=== PATIENT | female | born 1985 | race Caucasian/White ===

== ENCOUNTER 2018-05-09 14:49 | Outpatient (CLI) | payer BC, OTHER ==
[2018-05-09 15:15] LABS: Basophils % (A) 0 %; Eosinophils # (A) 0.1 k/uL (0-0.7); Eosinophils % (A) 1 %; HCT 38.8 % (34.0-46.0); HGB 13.2 gm/dL (11.4-16.0); Lymphocytes # (A) 2.6 k/uL (1.0-4.8); Lymphocytes % (A) 26 %; MCH 30.5 pg (25.0-35.0); MCHC 33.9 g/dL (31.0-37.0); MCV 90.1 fL (80.0-100.0); Mean Platelet Volume 8.1; Monocytes # (A) 0.4 k/uL (0-1.0); Monocytes % (A) 4 %; Neutrophils # (A) 6.9 k/uL (1.3-7.7); Neutrophils % (A) 68 %; Platelet Count 287 k/uL (150-450); RBC 4.31 m/uL (3.80-5.40); RDW 12.9 % (11.5-15.5); WBC 10.2 k/uL (3.8-10.6)
[2018-05-09 15:16] VITALS: BP 125/87; PULSE 99
[2018-05-09 15:27] LABS: ALT 26 U/L (9-52); AST 21 U/L (14-36); Blood Urea Nitrogen 6 mg/dL (7-17); LDH 455 U/L (313-618)
[2018-05-09 15:55] LABS: Appearance,Urine Clear (Clear); Bacteria,Urine Occasional /hpf; Bilirubin,Urine Negative (Negative); Blood,Urine Negative (Negative); Color,Urine Light Yellow; Glucose,Urine (UA) Negative (Negative); Ketones,Urine Negative (Negative); Leukocyte Esterase,Urine Moderate (Negative); Nitrite,Urine Negative (Negative); Protein,Urine Negative (Negative); RBC,Urine 1 /hpf (0-5); Specific Gravity,Urine 1.006 (1.001-1.035); Squamous Epithelial Cell,Urine 6 /hpf (0-4); Urobilinogen,Urine <2.0 mg/dL (<2.0); WBC,Urine 4 /hpf (0-5)
[2018-05-09 17:11] VITALS: RESP 14; TEMP 98.1
--- NOTE | 2018-05-25 09:40 | P.MSEPDOC ---
Presenting Problems - Arrival Data Date of Arrival on Unit: 05/09/18 Time of Arrival on Unit: 14:50 Mode of Transport: Ambulatory - Complaint OB-Reason for Admission/Chief Complaint: PIH Comment: sent from office for pih workup Medical History - Information : 4 Para: 2 Term: 2 : 0 Abortions: Spontaneous or Elective: 1 Number of Living Children: 2 - Gestational Age Gestational Age by PAU (wks/days): 38 Weeks and 4 Days - History Comment: sent from office for PIH work-up Review of Systems - Review of Systems Constitutional: No problems Breast: No problems ENT: No problems Cardiovascular: No problems Respiratory: No problems Gastrointestinal: No problems Genitourinary: No problems Musculoskeletal: No problems Neurological: No problems Skin: No problems Vital Signs - Temperature Temperature: 98.1 F Temperature Source: Temporal Artery Scan - Pulse Right Brachial Pulse Rate: 99 Pulse Assessment Method: Automatic Cuff - Respirations Respiratory Rate: 14 Oxygen Delivery Method: Room Air - Blood Pressure Right Arm Blood Pressure: 125/87 Blood Pressure Mean: 99 Blood Pressure Source: Automatic Cuff Medical Screen Scoring (Pre) - Cervical Exam Dilation: Exam Deferred Effacement: Exam Deferred - Uterine Contractions Frequency: N/A Duration: N/A Intensity: N/A - Maternal Vital Signs Maternal Temperature: N/A Maternal Blood Pressure: N/A Signs of Preeclampsia: N/A Maternal Respirations: N/A - Pain Assessment Pain Scale Used: Numeric (1 - 10) Pain Intensity: 0 - Maternal Trauma Maternal Trauma: N/A - Assessment Baseline FHR: 145 Heart Rate - NICHD Category: Category I (Normal) = 0 NST: Reactive Position: N/A Station: N/A - Total Score Total Score (Pre): 0 - Level of Risk Level of Risk: Low (0-5) Physician Notification (Pre) - Physician Notified Physician Notified Date: 05/09/18 Physician Notified Time: 14:50 Physician/Practitioner Notifed:: megan Spoke With: megan New Order Received: Yes - Notification Comment Comment: pt sent over from the office with orders for PIH work-up, nst, serial bps. dr guzman contracted when results complete. was at bedside and spoke to pt. pt offered induction at this time, but refused. pt to return for nst with weekend. instructed on s/s and return visit r/t to s/s. pt verbalizes understanding Disposition - Disposition OB Disposition: Discharge to home Discharge Date: 05/09/18 Discharge Time: 16:45 I agree with the RN Medical Screening Exam: Yes Risk & Benefit of care provided described in d/c instruction: Yes Diagnosis: GESTATIONAL HTN W/O SIGNIFICANT PROTEINURIA, THIRD TRIMESTER
== END 2018-05-09 16:44 | disposition home or self-care (01) ==
LOC: FBPOP 14:49
PROVIDERS: ATTEND Obstetrics & Gynecology
DX: O13.3 Gestational [pregnancy-induced] hypertension without significant proteinuria, third trimester (principal); Z3A.38 38 weeks gestation of pregnancy
CPT/HCPCS: 59025; 81001; 82565; 83615; 84450; 84460; 84520; 84550; 85025; 99215

== ENCOUNTER 2018-05-12 11:41 | Outpatient (CLI) | payer BC, OTHER ==
[2018-05-12 12:13] VITALS: BP 132/88; PULSE 108; RESP 16; TEMP 98
--- NOTE | 2018-05-12 12:37 | P.MSEPDOC ---
Presenting Problems - Arrival Data Date of Arrival on Unit: 05/12/18 Time of Arrival on Unit: 11:38 Mode of Transport: Ambulatory - Complaint OB-Reason for Admission/Chief Complaint: NST Comment: here with order from Dr Gamez for NST and blood pressure check Medical History - Information : 4 Para: 3 Term: 2 : 0 Abortions: Spontaneous or Elective: 1 Number of Living Children: 3 - Gestational Age Gestational Age by PAU (wks/days): 39 Weeks and 0 Days Review of Systems - Review of Systems Constitutional: No problems Breast: No problems ENT: No problems Cardiovascular: No problems Respiratory: No problems Gastrointestinal: No problems Genitourinary: No problems Musculoskeletal: No problems Neurological: No problems Skin: No problems Vital Signs - Temperature Temperature: 98.0 F Temperature Source: Oral - Pulse Right Sitting Brachial Pulse Rate: 108 Pulse Assessment Method: Automatic Cuff - Respirations Respiratory Rate: 16 - Blood Pressure Right Arm Blood Pressure: 132/88 Blood Pressure Mean: 102 Blood Pressure Source: Automatic Cuff Medical Screen Scoring (Pre) - Cervical Exam Dilation: Exam Deferred Effacement: Exam Deferred Membranes: Intact - Uterine Contractions Frequency: N/A Duration: N/A Intensity: N/A - Maternal Vital Signs Maternal Temperature: N/A Maternal Blood Pressure: N/A Signs of Preeclampsia: N/A Maternal Respirations: N/A - Pain Assessment Pain Intensity: 0 Pain Management Goal: 2 - Maternal Trauma Maternal Trauma: N/A - Assessment Baseline FHR: 150 Heart Rate - NICHD Category: Category I (Normal) = 0 NST: Reactive Position: N/A Station: N/A - Total Score Total Score (Pre): 0 - Level of Risk Level of Risk: Low (0-5) Physician Notification (Pre) - Physician Notified Physician Notified Date: 05/12/18 Physician Notified Time: 12:03 Physician/Practitioner Notifed:: Win Cardenas Order Received: Yes Disposition - Disposition OB Disposition: Discharge to home, Written follow up instructions reviewed Discharge Date: 05/12/18 Discharge Time: 12:05 I agree with the RN Medical Screening Exam: Yes Risk & Benefit of care provided described in d/c instruction: Yes Diagnosis: GESTATIONAL HTN W/O SIGNIFICANT PROTEINURIA, THIRD TRIMESTER (Pt was told to come to L&D per Dr. Gamez for a BP check and NST. NST is reactive. BP 132/88 and 132/83 which is unchanged from 05/09 when she saw him. Labs at that time were normal and pt has no sypmtoms. At this time there is no evidence of pre-eclampsia or gestational hypertension. Dr. Gamez instructed her to see him on Sun and she was advised by the RN to follow with his treatment plan.)
== END 2018-05-12 12:05 | disposition home or self-care (01) ==
LOC: FBPOP 11:41
PROVIDERS: ATTEND Obstetrics & Gynecology
DX: O13.3 Gestational [pregnancy-induced] hypertension without significant proteinuria, third trimester (principal); Z3A.39 39 weeks gestation of pregnancy
CPT/HCPCS: 59025

== ENCOUNTER 2018-05-15 12:10 | Outpatient (CLI) | payer BC, OTHER ==
--- NOTE | 2018-05-25 09:44 | P.MSEPDOC ---
Presenting Problems - Arrival Data Date of Arrival on Unit: 05/15/18 Time of Arrival on Unit: 12:10 Mode of Transport: Ambulatory Disposition - Disposition Discharge Date: 05/15/18 Discharge Time: 13:55 I agree with the RN Medical Screening Exam: Yes Risk & Benefit of care provided described in d/c instruction: Yes Diagnosis: GESTATIONAL HTN W/O SIGNIFICANT PROTEINURIA, THIRD TRIMESTER
== END 2018-05-15 13:56 | disposition home or self-care (01) ==
LOC: FBPOP 12:10
PROVIDERS: ATTEND Obstetrics & Gynecology
DX: O13.3 Gestational [pregnancy-induced] hypertension without significant proteinuria, third trimester (principal); Z3A.00 Weeks of gestation of pregnancy not specified
CPT/HCPCS: 59025; 99215

== ENCOUNTER 2018-05-22 06:00 | Inpatient (IN) | payer BC, OTHER ==
[2018-05-22] MEDS ORDERED: LIDOCAINE 0.5% (PF) 5 MG/ML (50 ML SDV) SQ PRN (06:55)
[2018-05-22] MEDS ORDERED: TERBUTALINE 1 MG/ML VIAL SQ PRN (06:55)
[2018-05-22] MEDS ORDERED: OXYTOCIN 10 UNIT/ML 1 ML VIAL IM PRN (06:55)
[2018-05-22] MEDS ORDERED: CARBOPROST TROMETHAMINE 250 MCG/ML 1 ML AMP IM PRN (06:55)
[2018-05-22] MEDS ORDERED: METHYLERGONOVINE 0.2 MG/ML 1 ML AMP IM PRN (06:55)
[2018-05-22] MEDS: LACTATED RINGERS 1,000 ML IV SCH ×2 (07:00→21:49)
[2018-05-22] MEDS ORDERED: OXYTOCIN 20 UNITS/1000 ML NS 1,000 ML IV SCH (07:00)
[2018-05-22 07:22] VITALS: BMI 34.5
[2018-05-22 07:24] LABS: Basophils % (A) 0 %; Eosinophils # (A) 0.1 k/uL (0-0.7); Eosinophils % (A) 1 %; HCT 35.9 % (34.0-46.0); HGB 12.2 gm/dL (11.4-16.0); Lymphocytes % (A) 26 %; MCH 30.5 pg (25.0-35.0); MCV 89.7 fL (80.0-100.0); Mean Platelet Volume 8.3; Monocytes # (A) 0.5 k/uL (0-1.0); Monocytes % (A) 4 %; Neutrophils # (A) 7.5 k/uL (1.3-7.7); Neutrophils % (A) 67 %; Platelet Count 238 k/uL (150-450); RDW 13.5 % (11.5-15.5); WBC 11.2 k/uL (3.8-10.6)
[2018-05-22] MEDS ORDERED: ROPIVACAINE 5MG/ML 20ML VIAL ONE (09:44)
[2018-05-22] MEDS ORDERED: fentaNYL (PF) 50 MCG/ML 5 ML AMP ONE (09:44)
[2018-05-22] MEDS ORDERED: SODIUM CHLORIDE 0.9% 100 ML BAG ONE (09:44)
[2018-05-22] MEDS ORDERED: WITCH HAZEL 1 EACH MED..PAD TOPICAL PRN (16:16)
[2018-05-22] MEDS ORDERED: diphenhydrAMINE 50 MG CAP PO PRN (16:16)
[2018-05-22] MEDS ORDERED: ZOLPIDEM 5 MG TAB PO PRN (16:16)
[2018-05-22] MEDS ORDERED: diphenhydrAMINE 50 MG/ML 1 ML VIAL IVP PRN ×2 (16:16)
[2018-05-22] MEDS ORDERED: ACETAMINOPHEN TAB 325 MG TAB PO PRN (16:16)
[2018-05-22] MEDS ORDERED: HYDROCORTISONE 2.5% RECTAL CREAM 30 GM TUBE RECTAL PRN (16:16)
[2018-05-22] MEDS ORDERED: SIMETHICONE 80 MG CHEWABLE PO PRN (16:16)
[2018-05-22] MEDS ORDERED: BENZOCAINE/MENTHOL SPRAY 1 GM/SPRAY AEROSOL TOPICAL PRN (16:16)
[2018-05-22] MEDS ORDERED: diphenhydrAMINE 25 MG CAP PO PRN (16:16)
[2018-05-22] MEDS ORDERED: LANOLIN CREAM 5 GM TUBE TOPICAL PRN (16:16)
--- NOTE | 2018-05-22 16:18 | P.HPOB ---
History of Present Illness H&P Date: 05/22/18 Chief Complaint: Intrauterine at term: Induction of labor Saravanan is a 32-year-old at 40 weeks gestation who arrives for induction of labor. Her course generally speaking had been unremarkable and she was feeling well at this time. She did see [facility] for a echocardiogram for an irregular heart rate but that was returned as normal and since that time NSTs and heart rate had been normalized. This morning she was dilated to approximate 4 cm artificial rupture membranes was performed and clear fluid is noted. Category 1 tracing is noted. Pertinent labs O+ blood type, Rh antibody was negative rubella immune, hepatitis B surface antigen and RPR as well as GBS are all negative. Past Medical History Past Medical History: No Reported History History of Any Multi-Drug Resistant Organisms: None Reported Additional Past Surgical History / Comment(s): d/c 11/2009 Past Anesthesia/Blood Transfusion Reactions: No Reported Reaction Past Psychological History: No Psychological Hx Reported Smoking Status: Never smoker Past Alcohol Use History: None Reported Past Drug Use History: None Reported Medications and Allergies Home Medications Medication Instructions Recorded Confirmed Type Pnv,Calcium 72/Iron/Folic Acid 1 tab PO DAILY 05/09/18 05/22/18 History [ Plus Tablet] Allergies Allergy/AdvReac Type Severity Reaction Status Date / Time No Known Allergies Allergy Verified 05/22/18 06:55 Exam Osteopathic Statement: *. No significant issues noted on an osteopathic structural exam other than those noted in the History and Physical/Consult. Vital Signs Temp Pulse Resp BP 05/22/18 07:17 98.9 F 84 18 127/85 Intake and Output 05/22/18 05/22/18 05/22/18 06:59 14:59 22:59 Intake Total 1500 Output Total 250 Balance 1250 Intake: Intake, IV Titration 1500 Amount Lactated Ringers 1,000 ml 1500 @ 125 mls/hr IV .Q8H [facility] Rx#:[id number] Output: Urine 250 Other: # Voids 2 Weight 85.729 kg 85.729 kg - OBG Physical Exam Breast: both: normal (no masses) Abdomen: bowel sounds normal, no diffuse tenderness, no bruit present, no guarding noted, no hepatomegaly, no splenomegaly, no mass Vulva: both: normal Vagina: normal moisture, no discharge Cervix: no lesion, no discharge Uterus: normal size, normal contour Adnexa: both: normal Anus/Rectum: normal perianal skin, no rectal mass, no hemorrhoids, heme negative Results Result Diagrams: 05/22/18 07:05 Abnormal Lab Results - Last 24 Hours (Table) 05/22/18 Range/Units 07:05 WBC 11.2 H (3.8-10.6) k/uL
--- NOTE | 2018-05-22 16:20 | P.PROBDLV ---
Vaginal Delivery Note - . Vaginal Delivery Note: Patient progressed to complete and pushing with spontaneous vaginal delivery of a viable male over a first-degree perineal laceration. Falling deliver the head a nuchal cord 1 was easily reduced. Baby was delivered from right occiput anterior position. Posterior shoulder actually was compound hand presentation at that time of delivery of the head and was therefore delivered first. Gentle downward traction and some clockwise rotation was done to deliver the anterior shoulder and the remainder the baby. Baby was then placed on mother's abdomen and the mouth nares were bulb suctioned and umbilical cord was clamped cut usual fashion following 30 seconds of ulceration. Placenta was then delivered intact and Pitocin was added to the IV. scores were 9 and 9 at one and 5 minutes respectively. Weight is pending. Both mother and baby are stable upon delivery. One interrupted 3-0 Vicryl was placed in the perineum to reapproximate the first degree laceration.
[2018-05-22] MEDS: IBUPROFEN 600 MG TAB PO PRN ×2 (17:03→20:06)
[2018-05-22] MEDS ORDERED: ceFAZolin IN SWFI 2 GM/20 ML SYRINGE IVP ONE (17:30)
[2018-05-22] MEDS: SENNOSIDES-DOCUSATE SODIUM 1 EACH TAB PO SCH (20:06)
[2018-05-23 07:57] LABS: Basophils % (A) 0 %; Eosinophils # (A) 0.1 k/uL (0-0.7); Eosinophils % (A) 1 %; HCT 31.2 % (34.0-46.0); Lymphocytes # (A) 2.9 k/uL (1.0-4.8); Lymphocytes % (A) 19 %; MCH 31.8 pg (25.0-35.0); MCHC 35.2 g/dL (31.0-37.0); MCV 90.4 fL (80.0-100.0); Mean Platelet Volume 8.7; Monocytes # (A) 0.6 k/uL (0-1.0); Monocytes % (A) 4 %; Neutrophils # (A) 11.5 k/uL (1.3-7.7); Neutrophils % (A) 76 %; Platelet Count 222 k/uL (150-450); RBC 3.45 m/uL (3.80-5.40); RDW 13.7 % (11.5-15.5); WBC 15.2 k/uL (3.8-10.6)
[2018-05-23 08:26] LABS: Blood Urea Nitrogen 11 mg/dL (7-17)
[2018-05-23] MEDS: SENNOSIDES-DOCUSATE SODIUM 1 EACH TAB PO SCH ×2 (08:28→19:59)
--- NOTE | 2018-05-23 09:15 | P.PNOBGVD ---
Subjective - Subjective Principal diagnosis: day 1 Interval history: Doing well now, had a temperature yesterday but that is resolved. We'll put her on oral antibiotics as precaution Patient reports: Reports appetite normal, Reports voiding normally, Reports pain well controlled, Reports ambulating normally : doing well, in NICU (Due to temperatures) Objective - Latest Vital Signs Latest vital signs: Vital Signs Temp Pulse Resp BP 05/23/18 08:00 97.9 F 85 18 128/81 05/23/18 04:00 97.8 F 74 16 123/69 05/22/18 23:59 98.2 F 68 16 102/56 05/22/18 20:00 98.7 F 89 16 137/69 05/22/18 18:16 99.9 F H 93 18 111/66 05/22/18 17:46 99.1 F 96 18 108/57 05/22/18 17:16 113 H 18 120/56 05/22/18 17:01 100.7 F H 100 18 121/73 05/22/18 16:46 101.1 F H 104 H 18 121/65 05/22/18 16:31 95 18 123/69 05/22/18 16:16 100.2 F H 129 H 18 148/67 Intake and Output 05/22/18 05/23/18 05/23/18 22:59 06:59 14:59 Intake Total 26.85 Balance 26.85 Intake: Intake, IV Titration 26.85 Amount Oxytocin 20 Units/1000 ml 26.85 Ns 1,000 ml @ 1 MILLIUNIT/MIN 3 mls/hr IV .Q24H [facility] Rx#:[id number] Other: # Voids 1 2 - Exam Lungs: bilateral: normal Chest: Normal S1, Normal S2 Extremities: Present: normal Abdomen: Present: normal appearance, soft Uterus: Present: normal, firm - Labs Labs: Abnormal Lab Results - Last 24 Hours (Table) 05/23/18 05/23/18 Range/Units 07:49 07:49 WBC 15.2 H (3.8-10.6) k/uL RBC 3.45 L (3.80-5.40) m/uL Hgb 11.0 L (11.4-16.0) gm/dL Hct 31.2 L (34.0-46.0) % Neutrophils # 11.5 H (1.3-7.7) k/uL Creatinine 0.50 L (0.52-1.04) mg/dL
[2018-05-23] MEDS: IBUPROFEN 600 MG TAB PO PRN ×2 (10:42→19:59)
[2018-05-23] MEDS: CEPHALEXIN 500 MG CAP PO SCH ×2 (15:59→23:47)
[2018-05-24 07:46] VITALS: BP 107/61; PULSE 67; RESP 16; TEMP 97.8
[2018-05-24] MEDS: SENNOSIDES-DOCUSATE SODIUM 1 EACH TAB PO SCH (09:04)
[2018-05-24] MEDS: CEPHALEXIN 500 MG CAP PO SCH ×2 (09:09→15:32)
[2018-05-24] MEDS: IBUPROFEN 600 MG TAB PO PRN (11:29)
--- NOTE | 2018-05-24 12:44 | P.DS ---
Providers Date of admission: 05/22/18 06:43 Expected date of discharge: 05/24/18 Attending physician: Trell Gamez Primary care physician: Trell Gamez Hospital Course: Saravanan is doing very well day 2. We'll plan discharged home today. Vital signs are stable and afebrile. Heart regular, lungs clear, extremities without pain. Abdomen soft uterus is firm and lochia is reported be light. Assessment day 2. Plan discharged home follow up with me in 6 weeks. Prescription for Motrin and Keflex have been provided as has a breast pump. Patient Condition at Discharge: Good Plan - Discharge Summary New Discharge Prescriptions: New Ibuprofen [Motrin] 600 mg PO Q6HR PRN #30 tab PRN Reason: Pain Cephalexin [Keflex] 500 mg PO Q6HR 3 Days #12 cap No Action Pnv,Calcium 72/Iron/Folic Acid [ Plus Tablet] 1 tab PO DAILY Discharge Medication List Pnv,Calcium 72/Iron/Folic Acid [ Plus Tablet] 1 tab PO DAILY 05/09/18 [ History] Cephalexin [Keflex] 500 mg PO Q6HR 3 Days #12 cap 05/24/18 [Rx] Ibuprofen [Motrin] 600 mg PO Q6HR PRN #30 tab 05/24/18 [Rx] Follow up Appointment(s)/Referral(s): Trell Gamez DO [Primary Care Provider] - 6 Weeks Activity/Diet/Wound Care/Special Instructions: No heavy lifting, limit stairs and driving, and pelvic rest. If any high temperatures, heavy bleeding, or severe pain call my office Discharge Disposition: HOME SELF-CARE
[2018-05-24] MEDS ORDERED: INFLUENZA VACCINE (6 MOS+) 60 MCG/0.5 ML SYRINGE IM ONE (15:39)
== END 2018-05-24 15:45 | disposition home or self-care (01) | DRG 807 ==
LOC: 4FBP 06:43
PROVIDERS: ADMIT Obstetrics & Gynecology; ATTEND Obstetrics & Gynecology
PROC: 00HU33Z Insertion of Infusion Device into Spinal Canal, Percutaneous Approach (ICD-10-PCS; principal; 2018-05-22)
PROC: 3E033VJ Introduction of Other Hormone into Peripheral Vein, Percutaneous Approach (ICD-10-PCS; principal; 2018-05-22)
PROC: 3E0R3NZ Introduction of Analgesics, Hypnotics, Sedatives into Spinal Canal, Percutaneous Approach (ICD-10-PCS; principal; 2018-05-22)
PROC: 0HQ9XZZ Repair Perineum Skin, External Approach (ICD-10-PCS; principal; 2018-05-22)
PROC: 10E0XZZ Delivery of Products of Conception, External Approach (ICD-10-PCS; principal; 2018-05-22)
PROC: 10907ZC Drainage of Amniotic Fluid, Therapeutic from Products of Conception, Via Natural or Artificial Opening (ICD-10-PCS; principal; 2018-05-22)
DX: O48.0 Post-term pregnancy (principal); Z37.0 Single live birth; Z3A.40 40 weeks gestation of pregnancy; O69.81X0 Labor and delivery complicated by cord around neck, without compression, not applicable or unspecified; O70.0 First degree perineal laceration during delivery; O32.6XX0 Maternal care for compound presentation, not applicable or unspecified
CPT/HCPCS: 82565; 84520; 85025; 86850; 86900; 86901; 90686